=== PATIENT | female | born 1940 | race Caucasian/White ===

== ENCOUNTER 2021-10-06 16:36 | Inpatient (IN) | payer MEDICARE, MEDICAID ==
[~2021-10-06] VITALS: Ht 162.6 cm; Wt 54.9 kg
[2021-10-06 17:56] LABS: HEMOGLOBIN 12.6 gm/dl (12.3-15.3); RED BLOOD COUNT 4.51 M/UL (4.00-5.10); WHITE BLOOD COUNT 11.5 K/UL (4.5-11.0)
[2021-10-06] MEDS ORDERED: COLACE100 MG PO (22:17)
[2021-10-06] MEDS ORDERED: AMLODIPINE BESYL5 MG PO (22:17)
--- NOTE | 2021-10-07 05:47 | NUR ---
PATIENT COMPLAINING OF BACK/SHOULDER PAIN. I CONTACTED THE PROVIDER AND RECIEVED AN ORDER FOR A 1X DOSE OF TYLENOL 1,000 MG. I ASKED THE PATIENT IF SHE WAS STILL RECIEVING PREDNISONE AND TORADOL FOR HER SHOULDER BURSITIS. THE DAUGHTER IN LAW THAT IS AT THE BEDSIDE WITH THE PATIENT STATED NO SHE HAD FINISHED THOSE MEDS. THAT THE TORADOL DID HELP FOR THE PAIN. I WILL LET THE ON COMING NURSE KNOW THAT TORADOL WORKS WELL FOR PATIENTS BACK/SHOULDER PAIN.
--- NOTE | 2021-10-07 05:51 | NUR ---
PATIENT GIVEN A WARMING PACK AND IT WAS APPLIED OVER TOP OF HER SHIRT ON HER UPPER BACK (NO SKIN CONTACT). ALSO A WARM BLANKET WAS GIVEN FOR COMFORT.
[2021-10-07 07:28] LABS: HEMOGLOBIN 12.9 gm/dl (12.3-15.3); RED BLOOD COUNT 4.62 M/UL (4.00-5.10); WHITE BLOOD COUNT 9.5 K/UL (4.5-11.0)
[2021-10-08 06:48] LABS: HEMOGLOBIN 12.1 gm/dl (12.3-15.3); RED BLOOD COUNT 4.37 M/UL (4.00-5.10); WHITE BLOOD COUNT 11.3 K/UL (4.5-11.0)
[2021-10-08 11:14] LABS: HBSAG SCREEN Negative (Negative); HEP A AB, IGM Negative (Negative); HEP B CORE AB, IGM Negative (Negative); HEP C VIRUS AB <0.1 (0.0-0.9)
[2021-10-09 09:20] LABS: BUN/CREATININE RATIO 26 (0-10)
[2021-10-09 14:03] LABS: HEMOGLOBIN 12.4 gm/dl (12.3-15.3)
--- NOTE | 2021-10-09 16:15 | NUR ---
was informed by caser in[facility] [facility] to send patient home, that she will set up patient with [facility] and does not need to wait for report. patient can go home.
[2021-10-09] MEDS ORDERED: ROXICODONE TAB 55 MG PO (16:40)
--- NOTE | 2021-10-09 16:41 | NUR ---
notified dr. sims of patient request to have pain medicine and stated she will call to patient pharmacy. informed family member and stated will [facility] medicine
== END 2021-10-09 17:10 | disposition home or self-care (01) | DRG 432 ==
LOC: ER1 16:36 → M/S 19:20 → CDU 19:20 → M/S 20:50
PROVIDERS: Emergency Medicine; Physician Assistant Medical; Registered Nurse; ADMIT Internal Medicine
PROC: 3E04329 Introduction of Other Anti-infective into Central Vein, Percutaneous Approach (ICD-10-PCS; principal; 2021-10-06)
PROC: 0FB13ZX Excision of Right Lobe Liver, Percutaneous Approach, Diagnostic (ICD-10-PCS; 2021-10-09)
DX: K74.60 Unspecified cirrhosis of liver (principal); A41.9 Sepsis, unspecified organism; C22.0 Liver cell carcinoma; N39.0 Urinary tract infection, site not specified; N17.9 Acute kidney failure, unspecified; C22.9 Malignant neoplasm of liver, not specified as primary or secondary; R59.0 Localized enlarged lymph nodes; Z20.822 Contact with and (suspected) exposure to COVID-19; R91.1 Solitary pulmonary nodule; E83.52 Hypercalcemia; M54.9 Dorsalgia, unspecified; R63.4 Abnormal weight loss; F41.9 Anxiety disorder, unspecified; Z79.899 Other long term (current) drug therapy
CPT/HCPCS: 36415; 71045; 71260; 76705; 77012; 80053; 80074; 81001; 82105; 82330; 82397; 82550; 82553; 83540; 83550; 83735; 83880; 83970; 84100; 85014; 85018; 85025; 85027; 85610; 85652; 86140; 87040; 87086; 96374; 97116; 97116-GP-CQ; 97162; 97165; 97535; 99285; J0696; J1650; J7030; Q9967; U0002